=== PATIENT | male | born 1970 | race Caucasian/White ===

== ENCOUNTER 2024-10-16 09:33 | Day surgery (SDC) | payer OTHER, SELFPAY ==
[2024-10-16] VITALS (9 sets, daily range): BP systolic 111–148; BP diastolic 75–97
--- NOTE | 2024-10-16 14:44 | ITS.CL.PN ---
Mobile Designer - Procedure Note
Procedure
Procedure Note:
CARDIAC CATHETERIZATION REPORT
Date of Procedure: 10/16/2024
Referring: Dr. Jaswinder Schwartz MD
Indication: preop evaluation prior to surgical aortic valve replacement
PROCEDURE: coronary angiography
ACCESS: 6F right radial artery (closure: radial band)
CATHETERS
1. 6F JR4
2. 6F JL4
MODERATE SEDATION: 25 minutes of moderate sedation was utilized. An independent medical coding specialist was present to assist with and help manage the patient's level of consciousness and physiologic status.
CORONARY ANGIOGRAPHY
Dominance: Right
LM: Short, normal
LAD: Large vessel giving rise to a small D1 and moderate caliber D2 before wrapping around the apex. There is no coronary artery disease.
LCx: Large caliber vessel giving rise to several small early OM branches, a small OM1, moderate caliber OM 2, and large LPL branch. There is no coronary artery disease.
RCA: Moderate caliber vessel giving rise to a small RPDA and small RPL branch. There are trivial luminal irregularities only.
RADIATION: dose 317 mGy; DAP 22 Gy*cm2; fluoroscopy time 4.4 min
CONCLUSIONS: normal coronary arteries in a right dominant system
RECOMMENDATION: proceed with workup for surgical AVR
Copy to: Ruel Tucker MD (cupola operator insulation); Jaswinder Schwartz MD (cardiac surgeon); Maverick King MD (PCP)
Signed: Tobias Manzano MD, PhD
== END 2024-10-16 14:20 | disposition home or self-care (01) ==
LOC: CATH 09:33
PROVIDERS: ATTENDING PHYSICIAN Internal Medicine Cardiovascular Disease; FAMILY PHYSICIAN Internal Medicine; OTHER PHYSICIAN Internal Medicine Cardiovascular Disease
DX: Z01.810 Encounter for preprocedural cardiovascular examination (principal); I35.0 Nonrheumatic aortic (valve) stenosis; Q23.81 Bicuspid aortic valve; Z82.49 Family history of ischemic heart disease and other diseases of the circulatory system; Z79.82 Long term (current) use of aspirin
CPT/HCPCS: 99152; 99153; C1769; C1894; 93454; Q9967

== ENCOUNTER → 2024-10-19 13:46 | Outpatient (REF) | payer OTHER, SELFPAY | LOC: RAD 13:46 | PROVIDERS: ATTENDING PHYSICIAN Thoracic Surgery (Cardiothoracic Vascular Surgery); FAMILY PHYSICIAN Internal Medicine; OTHER PHYSICIAN Internal Medicine Cardiovascular Disease | DX: I35.0 Nonrheumatic aortic (valve) stenosis (principal); Z01.810 Encounter for preprocedural cardiovascular examination | CPT/HCPCS: 75573; Q9967 ==

== ENCOUNTER 2024-10-23 05:05 | Inpatient (IN) | payer OTHER, SELFPAY ==
[2024-10-16 09:21] VITALS: BMI 30.6
[2024-10-16 09:21] LABS: Hematocrit 43.5 % (39.0-52.0); Hemoglobin 14.1 g/dL (13.0-18.0); Mean Corp Hgb Conc. 32.4 g/dL (33.0-37.0); Mean Corpuscular Volume 83.5 fL (80.0-94.0); Nucleated Red Blood Cells % 0 % (-); Platelet Count 214 10^3/uL (130-400); Red Cell Dist. Width 13.1 % (11.5-14.5); Urine Character Clear (Clear)
[2024-10-16 09:29] LABS: INR 0.97; PT 13.2 Sec (11.4-14.6)
--- NOTE | 2024-10-16 09:36 | CM ---
Chart reviewed. Met with the patient and his in PAT. Reviewed preoperative and postoperative instructions and restrictions, along with showering guidelines. Gave patient 2 soaps and Cardiac Surgery Book. Patient is agreeable to a home
visit by CT Transitional RN. Patient is independent of ADLS, lives with his in a 2 STH, 1 LAURO, 0 DME. Plan is for the patient to return home with CT Transitional RN. CM to follow
[2024-10-16 09:44] LABS: ALT (SGPT) 19 U/L (0-50); AST (SGOT) 20 U/L (17-59); Albumin 4.5 g/dl (3.5-5.0); Alkaline Phosphatase 75 U/L (38-126); Blood Urea Nitrogen 21 mg/dl (9-20); Calcium 9.5 mg/dl (8.4-10.2); Carbon Dioxide 26 mmol/L (22-30); Chloride 107 mmol/L (98-107); Estimated Creatinine Clearance 111 ml/min; Glucose 100 mg/dl (70-99); Potassium 4.3 mmol/L (3.5-5.1); Sodium 139 mmol/L (135-145); Total Protein 7.0 g/dl (6.3-8.2); eGFR > 60.00
[2024-10-16 11:46] LABS: Glycohemoglobin (HgbA1c) 5.2 % (4.0-5.6)
[2024-10-23] VITALS (16 sets, daily range): BP systolic 93–118; BP diastolic 56–76; BMI 28.0
[2024-10-23] MEDS: BACTROBAN 2% OINTMENT 1 APPLIC NASAL ×2 (05:34→19:41)
[2024-10-23] MEDS: LOPRESSOR 25 MG PO (05:34)
[2024-10-23] MEDS: MAGNESIUM OXIDE 500 MG PO (05:35)
[2024-10-23] MEDS: PROTONIX 40 MG PO (05:35)
--- NOTE | 2024-10-23 06:00 | PTCARENOTE ---
Patient arrived to room 2260 with security messenger. Patient A+A+Ox3. No neurological deficits. Steady gait. No c/o pain or discomfort. Patient confirmed taking Chlorhexidine shower last night and this morning. Patient confirmed NPO status
after midnight. Admission questions completed. Medication reconciliation completed. Patient clipped and prepped per protocol. CHG wipes. Required pre-op medications administered. Use of Heart pillow explained with repeat demonstration by
patient. I.S. 3500 ml. Patient's at bedside. Dr. Schwartz to speak with patient. call out operator to CVOR.
--- NOTE | 2024-10-23 06:08 | W.CVOR.SURPR ---
CVOR Surgeon Immed Pre Op
-
I have examined this patient prior to performance of the scheduled procedure.
The patient's condition is unchanged from the time of the dictated/written History and
Physical and the patient is able to undergo the scheduled procedure.
SAVR (biological - shared decision based on his SAVR CT measurements)
[2024-10-23 07:23] LABS: Urine Character Clear (Clear)
[2024-10-23 07:35] LABS: ACT+ - POC 115 Seconds (82-134)
[2024-10-23 08:23] LABS: Urine Red Blood Cell 0-2 /HPF (0-2); Urine White Cell 0-2 /HPF (0-5)
[2024-10-23 09:34] LABS: B.E. - POC 2.1 mmol/L; Glucose - POC 164 mg/dl (70-99); HCO3 - POC 27 mmol/L (21-28); Hematocrit - POC 34 % PCV (42-52); Hemodilution- POC Yes; Hemoglobin Calculated - POC 11.7; Ionized Calcium - POC 1.08 mmol/L (1.15-1.33); Lactate - POC 0.49 mmol/L (0.36-0.75); O2 Saturation %Calculated-POC 99.9 % (94-98); PCO2 - POC 40 mmHg (35-48); PO2 - POC 303 mmHg (83-108); Potassium - POC 5.0 mmol/L (3.5-5.1); Sodium - POC 142 mmol/L (136-145); Specimen Type - POC Arterial; pH - POC 7.43 (7.35-7.45)
[2024-10-23 09:34] LABS: ACT+ - POC 651 Seconds (82-134)
[2024-10-23 09:38] LABS: ACT+ - POC 134 Seconds (82-134)
--- NOTE | 2024-10-23 10:14 | W.PN.CT.SURG ---
CT Surgery Operative Note
-
CARDIAC SURGERY OPERATIVE REPORT
Preoperative Diagnosis: Aortic valve stenosis with bicuspid valve morphology, and presyncope
Postoperative Diagnosis: Same
Procedure(s) Performed:
1. Standard sternotomy the aortic and right atrial cannulation
2. Surgical aortic valve replacement [29 mm bioprosthesis]
3. 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
4. Rigid sternal fixation with 3 plates
5. Placement temporary ventricular pacing wire
6. Transesophageal echocardiography
Date of Surgery: 10/23/2024
Comorbidities:
1. Bicuspid aortic valve, type I Brionna classification
2. Severe aortic valve stenosis, symptomatic
3. Presyncope
Attending Surgeon: Jaswinder Schwartz MD, MS
Assistants: Aimee Leary PA-C (present and necessary to technical services assistant, retraction, suction, exposure, suture management, and wound closure under my direction)
Anesthesiology: Lex Mendoza MD and Lolly Penny CRNA, Colleen Mary Hunara, CRNA
Scrub and Circulating RNs: Arminda Lincoln RN, Loan Maynard RN
Central Station Operator: Aaron Singh CCP
Anesthesia: GETA
EBL: per perfusion records
Products: None
CPB Time: 66 minutes
Aortic Cross Clamp Time: 55 minutes
Indication(s) for Procedures: This is a 54-year-old male who has been noticing increasing symptoms while running. He is very active at baseline and does high speed running. Lately will try to push himself to the same level he developed presyncopal
symptoms. His transthoracic echocardiogram demonstrated severe to critical aortic valve stenosis with a mean gradient of 64 mmHg. He has known bicuspid valve morphology with [id number] fusion. Given his symptoms and his young age, he was
offered surgical aortic valve replacement with either mechanical biological valve. Given his line of work, shared decision making was to pursue a biological valve with the knowledge that he may need a repeat SAVR versus a TAVR and SAVR down the
line. His TAVR CT scan demonstrated amenable anatomy of the large root which should be good for a future transcatheter invention.
Aortic Valve Description: Bicuspid aortic valve morphology with left and right fusion, type I Brionna classification. Heavily calcified into the body and annulus particular towards aorto mitral curtain. The left right coronary ostia within normal
anatomic positions.
Findings: Ventricular ejection fraction preoperatively was 60% with no significant regional wall motion abnormalities. Following surgery his EF remained the same at 60% with no new regional wall motion abnormalities. His aortic valve was bicuspid,
type I Brionna classification of the left right fusion. There was heavy calcification that infiltrated down towards annulus particularly towards the aorto mitral curtain. This was debrided in order to provide a smooth surface for implanting the
new valve. A small rent was made into the aorto mitral curtain at the aortic valve annulus and this was repaired primarily with 4-0 Prolene and also a single pledgeted suture. The valve was replaced using a total of fifteen 2-0 Ethibond sutures
with 1 being pledgeted at that area. A 29 mm valve was then parachuted into place and core knots were used to secure the valve. After, of cardiopulmonary bypass there is no paravalvular leak, the mean gradient across the new valve was 5 mmHg. Did
not require any blood products. He required a short period of VVI pacing and then regained a sinus rhythm. No inotropic support was required. Sternum was then rigidly fixated with 3 gold plates.
Specimen(s): Aortic valve leaflets.
Prosthesis:
1. 29 mm Rollins Inspira's Resilia aortic valve, serial #[id number]
2. 3 gold plates with a total of 14 x 18 mm screws
Description of Procedure: The patient was taken to the operating room. Their identity and procedure to be performed were verified and they were positioned supine on the operating table. Induction via general anesthesia with endotracheal intubation
was performed and central venous access and arterial monitoring were inserted. A preoperative transesophageal echocardiogram was performed to assess cardiac function and valvular function. The patient was then prepped and draped from chin to feet in
a sterile fashion. A preoperative time-out was performed with all members of the team present. A midline chest incision was performed along with median sternotomy. The innominate vein was isolated. Full heparinization was given (a total of 55,000
units). We created a pericardial well. The aortic cannulation site was chosen where it was soft, pliable, and free of calcium. Cannulation was performed with an arterial cannula in the ascending aorta and a triple-stage venous cannula through the
right atrial appendage. The arterial cannula line had an appropriate bounce and correlating pressures with test dosing. Next, a root vent/antegrade cannula was inserted into the ascending aorta. The ACT was confirmed to be over 400 and retrograde
autologous priming was performed before commencing cardiopulmonary bypass. The pulmonary artery was away from the aorta to facilitate a clamp site and aortotomy. A left ventricular vent was placed at the right superior pulmonary vein and
secured. The aortic cross-clamp was placed after decreasing the flow on the bypass and mean arterial pressure. A total of 1.2L initial dose of antegrade Del-Nido cardioplegia solution was given and planned for re-dosing every 75 minutes as
necessary. There was rapid electro-mechanical arrest of the heart at 400 cc of cardioplegia. The left ventricle was observed for distention on echocardiogram and manual palpation. Cold slush was placed into a sponge and topically on the RV while we
systemically cooled to 34 degrees centigrade.
Carbon dioxide was used to flood the field. We manually identified the location of the right coronary take off. An aortotomy was made approximately 2cm above the sinotubular junction. The location of both left and right coronary vessels were
visualized in the root.The leaflets were excised and sent for pathological assessment. The annulus was debrided of any calcium being mindful of the annulus and membranous septum. A single 4-0 prolene was used to oversew a torn area at the
aortomitral curtain. The root and left ventricular outflow tract were thoroughly irrigated to remove any debris. A total of 14 Non-pledgeted and 1 pledgeted 2-0 ethibond inverted annular sutures were placed [id number] circumferentially. These
were brought through the sewing cuff of the prosthetic valve which as then parachuted into place. The left and right coronary ostia were visualized and were unobstructed by the valve. A Cor-Knot device was used to secure the annular sutures. The
valve was inspected and was well seated. The aortotomy was approximated with 4-0 prolene in two layers. De-airing maneuvers were performed and temporary bipolar ventricular pacing wires were placed on the base of the right ventricle. The patient was
placed in a Trendelenburg position and flows on bypass were lowered. The aortic cross clamp was removed and flows were slowly brought back up. The aortotomy appeared hemostatic. Transesophageal echocardiography revealed no paravalvular leak and
appropriate prosthetic function. Once de-airing was satisfactory, the left ventricular and root vents were removed. After verifying acceptable parameters, we initiated weaning from cardiopulmonary bypass. Once we were off cardiopulmonary bypass, the
venous cannula was clamped and removed. A test dose of protamine was administered and the patient was monitored for any adverse reaction before resuming protamine. Once half of the protamine dose was delivered, pump suckers were turned off and the
systolic blood pressure was lowered for aortic decannulation. The aortic cannula was removed and pursestrings were tied down. All cannulation sites were oversewn with a 4-0 prolene. The aortotomy suture line was inspected and hemostasis was
confirmed. Mediastinal hemostasis was obtained. Two 24Fr Javi drains were placed within the pericardium and a 19Fr javi into the right hemithorax. The sternum was approximated with 4#7 single and 3 #8 double stainless steel wires. 3 gold plates
were used to fixate the sternum. Fascia was approximated with #1 vicryl suture. The subcutaneous, dermis and epidermis were closed in layers in a running fashion. The skin wound was cleansed and dressed.
All instrument, sponge, and needle counts were confirmed to be correct x 2 at the end of the operation. The patient was transferred to the cardiac intensive care unit in critical but stable condition.
I, Dr. Jaswinder Schwartz, was present, scrubbed for, and performed all critical elements of this procedure.
Jaswinder Schwartz MD, MS
Cardiothoracic Surgeon
[facility]
This operative dictation was created using the [employer] dictation system. Please excuse any grammatical, typographical, or 'sound alike' errors
--- NOTE | 2024-10-23 10:28 | CON.INTV ---
Consultation
Consultation Request
Date/Time Consultation Requested: 10/23/2024 - 958
Date/Time Consultation Performed: 10/23/2024 - 1021
Requesting Provider: IRIS Aaron
Performing Provider: Dr. Mooney
Reason for Consultation: s/p AVR
Medical History
-
Chief Complaint: Elective SAVR
History of Present Illness:
54-year-old male non-smoker with a past medical history of nonrheumatic aortic valve stenosis and bicuspid aortic valve who presents for elective aortic valve replacement. Patient is a runner, and has been noticing increasing symptoms while
running. He has an excellent baseline functional status. He has been having episodes of presyncope + lightheadedness while walking/running. These symptoms are overall new for him. Transthoracic echo on 09/30/2024 showed a preserved LVEF at 60-65%,
with normal RV function, with severe to critical aortic stenosis with a peak gradient of 96 mmHg, and mean gradient of 65 mmHg. TATIANA 0.7 cm�, with a bicuspid appearing valve. Patient underwent left heart catheterization on 10/16/2024 showing normal
coronary arteries. Surgical intervention was discussed at patient's last office visit with Dr. Schwartz on 10/09/2024, and the patient agreed to this procedure. Today, patient underwent surgical aortic valve replacement with a 29 mm bioprosthesis, and
primary repair at the aorto mitral curtain at the aortic annulus due to calcium infiltration. There were no complications, and the patient was transferred to the CVICU postoperatively for further care. [facility] services consulted for additional
management/recommendations.
When I saw the patient he was resting in bed, intubated on SIMV at 14/650/40%/5, with PIP 19 cmH2O, VTe 563 cc and breathing at 14 breaths/min. Heart rate 57, BP via A-line 102/61, PAP 22/10, BP via NIBP: 100/66, SpO2 94%, with CO/CI: 5.05/2.1,
respectively. Currently on Precedex at 0.2 mcg/kg/hr, Levophed at 2 mcg/min and insulin drip at 4 units/hr. Right pleural chest tube + mediastinal chest tubes x [address]
PMHx: Aortic valve stenosis, bicuspid aortic valve
PSHx: Left shoulder release, vasectomy
Past Medical History
Past Medical History: Other (Above as per HPI)
Past Surgical History: Other (Above as per HPI)
Social History
Tobacco: Former Smoker (Former light tobacco smoker in his 20s)
Alcohol: None
Drug: None
Personal:
Employment: Employed ([employer] for [employer])
Family History
Family History: CAD (Maternal grandfather + maternal uncle) and Other (Mother: Dementia + stroke)
Allergies / Home Medications
Allergies
Allergy/AdvReac Type Severity Reaction Status Date / Time
No Known Allergies Allergy Verified 10/14/24 11:22
Home Medications
�Medication �Instructions �Recorded �Confirmed �Last Taken �Type
aspirin 325 mg tablet 325 mg PO PRN PRN pain 10/14/24 10/23/24 10/16/24 08:00 History
325 mg
Review of Systems
-
Unable to Obtain full review of systems at this time due to: Patient Intubation
Vitals / Labs / Diagnostic Testing
Vital Signs
Temp Pulse Resp BP Pulse Ox
96.3 F L 55 14 118/76 99
10/23/24 11:00 10/23/24 11:00 10/23/24 11:00 10/23/24 05:34 10/23/24 11:00
Lab Data
10/23/24 10:34
Laboratory Results
10/23/24
10:34
PT 17.4 H
INR 1.40
APTT 30.0
pH 7.42
pCO2 37
pO2 161 H
HCO3 24.0
O2 Delivery Level
Diagnostic Testing:
Physical Exam
-
HEENT: Normocephalic, Anicteric and Other (ETT in place)
Cardiovascular: S1/S2 and Peripheral Edema (negative)
Respiratory: Wheeze (negative), Rales (negative), Rhonchi (negative), Non-Labored Respirations, Other (Mechanical breath sounds heard bilaterally) and Other (Right pleural chest tube x 1 + mediastinal chest tubes x 2)
GI: Soft, Non Distended, Non Tender and Normal Bowel Sounds
Neurology: Tremors (negative) and Other (Sedated although awakens to tactile stimulation)
Skin: Warm and Dry
General: Respiratory Distress (negative), Comfortable, Fever (negative) and Chills (negative)
Assessment
-
Assessment: 54-year-old male non-smoker with a past medical history of nonrheumatic aortic valve stenosis and bicuspid aortic valve who presents for elective aortic valve replacement. Patient is a runner, and has been noticing increasing symptoms
while running. He has an excellent baseline functional status. He has been having episodes of presyncope + lightheadedness while walking/running. These symptoms are overall new for him. Transthoracic echo on 09/30/2024 showed a preserved LVEF at
60-65%, with normal RV function, with severe to critical aortic stenosis with a peak gradient of 96 mmHg, and mean gradient of 65 mmHg. TATIANA 0.7 cm�, with a bicuspid appearing valve. Patient underwent left heart catheterization on 10/16/2024 showing
normal coronary arteries. Surgical intervention was discussed at patient's last office visit with Dr. Schwartz on 10/09/2024, and the patient agreed to this procedure. On 10/23/2024, patient underwent surgical aortic valve replacement with a 29 mm
bioprosthesis, and primary repair at the aorto mitral curtain at the aortic annulus due to calcium infiltration. There were no complications, and the patient was transferred to the CVICU postoperatively for further care. [facility] services
consulted for additional management/recommendations.
Chronic conditions UNIVERSITY RELATIONS DIRECTOR: Aortic valve stenosis, bicuspid aortic valve
Impression:
#Symptomatic severe aortic valve stenosis with bicuspid valve morphology s/p surgical aortic valve replacement with 29 mm bioprosthesis + primary repair at the aorto mitral curtain at the aortic annulus due to calcium infiltration (POD #0)
#Hyperglycemia (mild) � HbA1c 5.2 on 10/16/2024
#Acute anemia due to above
#Thrombocytopenia due to above
Plan:
Ventilator settings reviewed
FiO2 will be weaned to maintain SpO2 >90-94%
Minute ventilation will be adjusted
Arterial blood gases will be monitored
Spontaneous breathing trial will be attempted with hopeful extubation after anesthesia/sedation wear off
prn nebulized bronchodilators - not currently bronchospastic
Pulmonary artery catheter parameters will be followed
Pressors/antihypertensive/inotropes/diuretics will be provided as needed
Maintain MAP>65
Replete electrolytes with K>4, Mg>2
Monitor chest tube output (right pleural chest tube x 1 and mediastinal chest tubes x 2)
Monitor hemoglobin
Monitor platelet count and coags
Transfuse blood products as needed to maintain Hb>7g/dL, plt>50k (given post-operative status)
CT surgery managing chest tubes
Monitor blood sugar to maintain euglycemia with goal BG 110-140
Insulin drip per protocol
Aspiration precautions
VAP prevention protocol
DVT prophylaxis
Early nutrition
Early mobilization
Critical care statement: A total of 41 minutes of critical care time was provided for this patient today. This includes management of ventilator, spontaneous breathing trial, arterial blood gases, pressors, of unstable vital signs, evaluation of the
patient at bedside, reviewing the patient's pertinent medical records including radiographs, microbiology, laboratory evaluations, and discussion with primary team and critical care nursing.
[2024-10-23 10:35] LABS: Glucose - Point of Care 131 mg/dl (70-99)
[2024-10-23] MEDS: NEURONTIN PO (10:47)
[2024-10-23] MEDS: ANCEF 10 IV ×2 (10:47)
[2024-10-23] MEDS: NOVOLOG FLEXPEN SC ×3 (10:48→13:44)
[2024-10-23 10:49] LABS: B.E. -0.2 mmol/L; HCO3 24.0 mmol/L (21-28); O2 Saturation % 99.4 % (94-98); PCO2 37 mmHg (35-48); PO2 161 mmHg (83-108); Potassium 4.2 mMOL/L (3.5-5.1); Sodium 135 mMOL/L (136-145)
[2024-10-23] MEDS: VERSED 0.5 MG IV (10:49)
[2024-10-23] MEDS: NSS 500 IV (10:51)
[2024-10-23 10:55] LABS: Hematocrit 36.7 % (39.0-52.0); Hemoglobin 12.4 g/dL (13.0-18.0); Platelet Count 139 10^3/uL (130-400)
[2024-10-23 10:58] LABS: INR 1.40; PT 17.4 Sec (11.4-14.6)
[2024-10-23 10:59] LABS: APTT 30.0 Sec (23.4-35.0)
[2024-10-23 11:06] LABS: Glucose - Point of Care 123 mg/dl (70-99)
[2024-10-23 11:14] LABS: Blood Urea Nitrogen 18 mg/dl (9-20); Estimated Creatinine Clearance 116 ml/min; Glucose 131 mg/dl (70-99); Magnesium 2.8 mg/dl (1.6-2.3)
[2024-10-23] MEDS: DILAUDID 0.5 MG IV (11:14)
--- NOTE | 2024-10-23 11:15 | PTCARENOTE ---
pt received from CVOR @~1030, sedated on Precedex gtt, RASS -3/-4. follows commands, VAUGHN. core temp 96.2F, bear hugger applied as ordered. SB on the monitor, HR 50s. V-wire in place, VVI 40/20. SBP 100-110s. MAP>65. Levophed gtt titrated as ordered.
PAP 20s/10s, CVP~6. CI>2. palpable pulses. pt mechanically ventilated, ETT #8.0, 24cm@lip. SIMV 14, TTV 550, PEEP5, FIO2 40%. POX 96-100%. lungs clear anteriorly, suctioned for scant clear secretions. CTx3, no air leak or crepitus noted. pt abdomen
s/n, hypoactive BS. Ma in place, clear yellow urine. sternal incision SENIOR RUBY DEVELOPER, approximated. chest tube site c/d/i. RIJ Cordis/swan maintained. L radial Martita flushed, zeroed, and calibrated. PIV. insulin gtt running as ordered. lab work drawn, EKG
performed, CXR completed. see worklist for VS, I&O, and assessment.
--- NOTE | 2024-10-23 11:22 | W.PN.CD ---
Addendum entered and electronically signed by Bruce Ambrose MD 10/23/24 17:27:
I saw and examined the patient independently.
The WOOD FINISHER's note was reviewed and I agree with the note with changes/additions noted below.
Comment:
54 yo male with PMH of severe admitted following bio-AVR. He has been extubated and is awake. He offers no cardiac complaints. Exam with RRR, no murmurs, no edema. Tele: SR 60s. MÓNICA: EF 60%.
Monitor tele.
Wean drips.
Original Note:
Today's Communication / Plan
-
Follow telemetry
Postoperative management per CT surgery
Impression / Plan
-
I/P: 54M with symptomatic severe aortic stenosis presents for AVR
Primary justice court judge: Dr. Ruel Tucker
Severe symptomatic aortic valve stenosis with bicuspid morphology s/p surgical aortic valve replacement (29 mm Rollins Inspira Resilia) by Dr. Schwartz 01/23/2025
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
- Post MG 5 mmHg
- Post LVEF unchanged at 60% with no new regional wall motion abnormalities
- Required a short period of VVI pacing and has regained sinus rhythm, no inotropic support required
- EKG sinus bradycardia with inferior T wave abnormality, iRBBB no longer present
SUBJECTIVE:
Intubated and sedated. Operative report reviewed.
Physical Exam
Vital Signs/Labs
Vital Signs
Temp Pulse Resp BP Pulse Ox
96.3 F L 55 14 118/76 99
10/23/24 11:00 10/23/24 11:00 10/23/24 11:00 10/23/24 05:34 10/23/24 11:00
10/22/24 10/23/24 10/24/24
06:59 06:59 06:59
Actual Weight 107 kg
10/23/24 10:34
PT 17.4 Sec (11.4-14.6) H 10/23/24 10:34
INR 1.40 10/23/24 10:34
APTT 30.0 Sec (23.4-35.0) 10/23/24 10:34
Magnesium 2.8 mg/dl (1.6-2.3) H 10/23/24 10:34
Physical Exam
Constitutional: No acute distress and Comfortable
EENT: Anicteric and Moist mucous membranes
Cardiovascular: Rhythm & rate is regular, Pedal edema is absent, S1S2 is normal and Murmur/rub/gallop absent
Respiratory: Lungs clear to auscul. and Other (Intubated and sedated)
GI: Soft, Distention absent and Flat
Neuro/Psych: Other (sedated)
Other: Skin (warm and dry without edema)
Data Reviewed
-
Date of Service: October 23, 2024
EKG: Report Reviewed by me
Labs: Labs Reviewed by me
Old Records: Reviewed
--- NOTE | 2024-10-23 11:28 | W.PN.UPDATE ---
Update Note
Progress Note Update
54 year old male was electively admitted 10/23/24 for AVR due to bicuspid aortic valve with aortic stenosis.
IV fluids: 1500
U.O.:� 600
Blood:� none
Wires:� bipolar V-wire
Drips: Levophed @1, Precedex @ 0.5, Insulin @ 1
�
NEURO: sedated, pupils +2mm B/L
RESP: #8OT @24cm> 650/40%/12/08. Lungs clear B/L. 2 mediastinal (20cc on arrival) and L pleural (0cc on arrival) chest tubes to -20cm suction. Sanguineous drainage
CV: RRR +S1, S2, no S3, no�rub, no murmur. Dermabond to median sternotomy. RIJ w/[place] locked @ 49cm. PA 25/11; CVP 7; C.O 5.08/CI 2.12
ABD: round, soft, no BS
EXT: no edema, +2/4 DP pulses B/L, no femoral bruit, left radial A-line intact
: Ma with clear yellow urine
�
A/P: POD #0 s/p aortic valve replacement [#29 mm bioprosthesis]
MÓNICA: EF�60-65%, AV mean 5mmHg
- wean and extubate
- will need instruction regarding antibiotic prophylaxis for dental and invasive procedures
- ASA for antiplatlet s/p tissue AVR
�
# acute surgical blood loss anemia-expected
- trend CBC
�
�
�
[2024-10-23] MEDS: LR 250 ML IV ×3 (11:46→14:59)
[2024-10-23 12:04] LABS: Glucose - Point of Care 164 mg/dl (70-99)
[2024-10-23] MEDS: TYLENOL PO (12:22)
[2024-10-23] MEDS: OFIRMEV 100 IV (12:28)
--- NOTE | 2024-10-23 12:46 | PTCARENOTE ---
updated at bedside. LR bolus given, pt nods head yes to pain, ordered Ofirmev given. pt washed w/ CHG wipes, gown changed, face washed. oral hygiene performed. attempted CPAP trial, multiple apneic episodes, placed back on SIMV.
[2024-10-23 13:01] LABS: Glucose - Point of Care 132 mg/dl (70-99)
[2024-10-23 14:00] LABS: Glucose - Point of Care 114 mg/dl (70-99)
[2024-10-23 14:27] LABS: Hematocrit 37.2 % (39.0-52.0); Hemoglobin 12.7 g/dL (13.0-18.0); Platelet Count 162 10^3/uL (130-400)
[2024-10-23 14:31] LABS: B.E. - POC -1.2 mmol/L; Blood Urea Nitrogen - POC 16 mg/dl (3-120); Chloride - POC 111 mmol/L (96-111); Creatinine - POC 1.09 mg/dl (0.3-1.0); Glucose - POC 109 mg/dl (70-99); HCO3 - POC 23 mmol/L (21-28); Hematocrit - POC 34 % PCV (42-52); Hemodilution- POC No; Hemoglobin Calculated - POC 11.7; Ionized Calcium - POC 1.12 mmol/L (1.15-1.33); Lactate - POC 1.78 mmol/L (0.36-0.75); O2 Saturation %Calculated-POC 99.7 % (94-98); PCO2 - POC 34 mmHg (35-48); PO2 - POC 191 mmHg (83-108); Potassium - POC 3.0 mmol/L (3.5-5.1); Sodium - POC 142 mmol/L (136-145); Specimen Type - POC Arterial; pH - POC 7.43 (7.35-7.45)
[2024-10-23] MEDS: KCL 50 IV ×2 (14:36→15:34)
[2024-10-23] MEDS: TORADOL 30 MG IV (14:54)
[2024-10-23 15:05] LABS: Glucose - Point of Care 110 mg/dl (70-99)
--- NOTE | 2024-10-23 15:11 | PTCARENOTE ---
pt placed on CPAP @1330, alert and awake, a couple apneic periods. SLOT MACHINE FLOOR PERSON aware. H&H drawn, EPOC performed at bedside by SLOT MACHINE FLOOR PERSON. pt extubated @1433 to 6LNC, suctioned for thick oral secretions. oriented x4. Ashley at bedside. pt c/o sternal and back
pain, ordered Toradol given.
[2024-10-23] MEDS: NEURONTIN 100 MG PO ×2 (15:54→21:12)
[2024-10-23] MEDS: LOW STRENGTH ASPIRIN 81 MG PO (15:54)
[2024-10-23] MEDS: PACERONE PO (16:04)
--- NOTE | 2024-10-23 16:31 | CM ---
pt in OR today, cm following
[2024-10-23 17:06] LABS: Glucose - Point of Care 116 mg/dl (70-99)
[2024-10-23] MEDS: ANCEF 5 IV (17:06)
[2024-10-23] MEDS: DILAUDID 0.25 MG IV (17:07)
[2024-10-23] MEDS: CALCIUM GLUCONATE 100 IV (17:36)
--- NOTE | 2024-10-23 18:31 | PTCARENOTE ---
pt c/o pain, received PRN Dilaudid 0.25mg IVP w/ decrease in pain.
[2024-10-23 19:01] LABS: Glucose - Point of Care 104 mg/dl (70-99)
[2024-10-23] MEDS: SENOKOT-S 1 TABLET PO (19:39)
[2024-10-23] MEDS: ROXICODONE 5 MG PO (19:40)
--- NOTE | 2024-10-23 20:00 | PTCARENOTE ---
Assumed care of the patient at 1900. Patient in bed, AOx4, VAUGHN, appropriate. C/o 10/08 pain, see MAR. SR on CM, rates 60-70's, v wire to backup pacer box, see work list, no edema, pulses palpable, heart tones audible. Lungs clear, 2LNC, CTx3 with
sanguineous drainage in chamber to -20 wall suction, no air leak, tidaling, or crepitus noted. Hypoactive BS, abdomen SNT, tolerating sips and chips and PO medication without nausea. Ma catheter in place draining clear yellow urine. All surgical
sites stable and intact. RIJ Cordis with Tacos at 49, L radial erin, PIVx1; all applicable lines leveled, calibrated, and flushed. Cardene started per CVPA d/t SBP 120-130 - keep 90-110 until 2200, titrating per protocol. Patient on insulin gtt at
this time. POC discussed, patient in agreement, education provided, assessment of needs ongoing.
--- NOTE | 2024-10-23 20:30 | PTCARENOTE ---
Assumed care of the patient at 1900. Patient in bed, AOx4, VAUGHN, appropriate. C/o 10/08 pain, see MAR. SR on CM, rates 60-70's, v wire to backup pacer box, see work list, no edema, pulses palpable, heart tones audible. Lungs clear, 2LNC, CTx3 with
sanguineous drainage in chamber to -20 wall suction, no air leak, tidaling, or crepitus noted. Hypoactive BS, abdomen SNT, tolerating sips and chips and PO medication without nausea. Ma catheter in place draining clear yellow urine. RIJ Cordis
with Tacos at 49, L radial erin, PIVx1; all applicable lines leveled, calibrated, and flushed. Cardene started per CVPA d/t SBP 120-130 - keep 90-110 until 2200, titrating per protocol. Patient on insulin gtt at this time. POC discussed, patient in
agreement, education provided, assessment of needs ongoing.
[2024-10-23] MEDS: TORADOL 15 MG IV (20:42)
[2024-10-23 21:07] LABS: Glucose - Point of Care 154 mg/dl (70-99)
[2024-10-23] MEDS: TYLENOL 1000 MG PO (21:12)
[2024-10-23 23:08] LABS: Glucose - Point of Care 117 mg/dl (70-99)
[2024-10-24] VITALS (19 sets, daily range): BP systolic 95–117; BP diastolic 60–74; BMI 28.5
--- NOTE | 2024-10-24 | PTCARENOTE ---
VSS, pain management with multiple modalities. Cardene titrated to off, CO/CI in flow sheet. Pt at bedside. Assessment of needs ongoing.
[2024-10-24] MEDS: DILAUDID 0.5 MG IV ×2 (00:17→07:07)
[2024-10-24 01:06] LABS: Glucose - Point of Care 109 mg/dl (70-99)
[2024-10-24] MEDS: ROXICODONE 5 MG PO ×4 (02:23→18:56)
[2024-10-24] MEDS: ANCEF 5 IV ×2 (02:24→10:08)
[2024-10-24 03:12] LABS: Glucose - Point of Care 122 mg/dl (70-99)
[2024-10-24] MEDS: TORADOL 15 MG IV ×2 (03:14→09:14)
[2024-10-24 03:38] LABS: Hematocrit 35.1 % (39.0-52.0); Hemoglobin 11.8 g/dL (13.0-18.0); Mean Corp Hgb Conc. 33.6 g/dL (33.0-37.0); Mean Corpuscular Volume 82.4 fL (80.0-94.0); Platelet Count 141 10^3/uL (130-400); Red Cell Dist. Width 13.1 % (11.5-14.5)
[2024-10-24 03:52] LABS: Blood Urea Nitrogen 24 mg/dl (9-20); Calcium 8.5 mg/dl (8.4-10.2); Carbon Dioxide 24 mmol/L (22-30); Chloride 109 mmol/L (98-107); Estimated Creatinine Clearance > 125 ml/min; Glucose 115 mg/dl (70-99); Magnesium 2.2 mg/dl (1.6-2.3); Potassium 4.0 mmol/L (3.5-5.1); Sodium 139 mmol/L (135-145); eGFR > 60.00
--- NOTE | 2024-10-24 04:20 | W.PN.CT ---
Today's Communication / Plan
-
-pod #1
-no issues overnight
-CI 2.46, CO 5.91. Drips: Insulin
-CT outputs: 2 meds 85/195, R pleur in 12/24 hrs
-delined
-d/c Ma
-d/c Insulin
-current meds (ASA, Lopressor, Amio, Protonix, iv iron)
Assessment / Plan
-
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
sternal fixation with [address] Schwartz on 10/23/25, pod #1
- Intraop MÓNICA: LVEF pre and postop was 60% with no significant regional wma. There was no paravalvular leak, the mean gradient across the new valve was 5 mmHg.
- L shoulder release 2018
- Vasectomy
- Nonsmoker
Discussed patient care with: Nursing and Care Team
Subjective
-
Date of Service: October 24, 2024
Objective Data
-
Lab Results
10/24/24 03:12
10/24/24 03:12
PT 17.4 Sec (11.4-14.6) H 10/23/24 10:34
INR 1.40 10/23/24 10:34
APTT 30.0 Sec (23.4-35.0) 10/23/24 10:34
Vital Signs
Vital Signs
Temp Pulse Resp BP Pulse Ox
99 F 65 22 104/66 97
10/24/24 04:00 10/24/24 04:10 10/24/24 04:10 10/24/24 04:00 10/24/24 04:10
CT Intake/Output/Weight
10/23/24 10/23/24 10/24/24
06:59 18:59 06:59
Intake Total 1551.0 / 2158.5 607.5 / 2158.5
Output Total 1068 / 1585 517 / 1585
Balance 483.0 / 573.5 90.5 / 573.5
SaO2: 97
Physical Exam
-
General: Awake and AOx3
Cardiovascular: Regular rate & rhythm, No Murmurs and No Rub
Respiratory: Decreased Breath Sounds
Sternum: Stable
Incision: Clean, Dry and Intact
Extremities: No Edema
Abdomen: soft, nontender, nondistended, + decreased bowel sounds
Data Reviewed
-
Lab Results: Results Reviewed
Medications: Active Meds Reviewed
Chest X-Ray: Report Reviewed and Image Reviewed
ECG: Report Reviewed and Image Reviewed
--- NOTE | 2024-10-24 04:20 | PTCARENOTE ---
No acute changes. Continued pain management.
[2024-10-24 05:07] LABS: Glucose - Point of Care 100 mg/dl (70-99)
[2024-10-24] MEDS: TYLENOL 1000 MG PO ×3 (06:07→21:37)
[2024-10-24] MEDS: ROXICODONE 2.5 MG PO (06:07)
[2024-10-24 07:00] LABS: Glucose - Point of Care 109 mg/dl (70-99)
--- NOTE | 2024-10-24 07:22 | W.PN.ANS.POP ---
Anesthesia Post Operative
- Anesthesia Post Op Note
Vital Signs Stable-See Nursing Note: Yes
Airway Patent: Yes
Adequate Pain Control: Yes
Change in Mental Status: No
Current Postoperative Nausea & Vomiting: No
Anesthesia Complications: No
General Anesthetic Recall: No
Unplanned Admission: No
Post Op Hydration Adequate: Yes
[2024-10-24] MEDS: NSS IV (07:33)
--- NOTE | 2024-10-24 08:00 | PTCARENOTE ---
Assumed care of patient. Walking rounds completed with previous RN. Pt assessed while he was up in the chair. Pt alert and oriented x4. Rates right sided chest pain/sternal pain 4/10. Denies nausea and shortness of breath. VAUGHN with equal strength
throughout. 1 assist to stand and get in to bed. NSR on tele with rates in the 70s. BP 95/64. +Rub. Bilateral radial and DP pulses palpable. No edema noted. Epicardial v-wire to temp pacer box. Thresholds completed, set to 40/5/6. No pacing after
thresholds completed. POX 96% on 2L, titrated to RA, POX 93%. Lungs diminished in the bases. IS encouraged-1000mL achieved. No cough noted. Right pleural chest tube to -20cm suction draining scant serosanguineous fluid. Mediastinal chest tubes x2
y-sited to 1 atrium to -20cm suction draining serosanguineous fluid WNL. Abdomen soft, nontender. Hypoactive BS. Tolerating clear liquid diet. Sternal incision approximated with skin glue, RENDERER. CT dressing CDI. Right IJ cordis intact infusing NSS
KVO. Left AC PIV intact infusing insulin gtt per Critical Care Glycemic Protocol. See MAR for medication administration. See worklist for complete nursing assessment. Plan of care reviewed and patient in agreement.
[2024-10-24] MEDS: MAGNESIUM OXIDE 500 MG PO ×2 (08:07→19:53)
[2024-10-24] MEDS: LOW STRENGTH ASPIRIN 81 MG PO (08:07)
[2024-10-24] MEDS: LIDOCAINE 4% PATCH 1 PATCH TOPICAL (08:07)
[2024-10-24] MEDS: PROTONIX 40 MG PO (08:07)
[2024-10-24] MEDS: FLEXERIL 5 MG PO ×2 (08:07→21:55)
[2024-10-24] MEDS: BACTROBAN 2% OINTMENT 1 APPLIC NASAL ×2 (08:08→19:54)
[2024-10-24] MEDS: PACERONE 200 MG PO ×3 (08:08→21:37)
[2024-10-24] MEDS: SENOKOT-S 1 TABLET PO ×2 (08:08→19:53)
[2024-10-24] MEDS: NEURONTIN 100 MG PO ×3 (08:08→21:37)
--- NOTE | 2024-10-24 08:11 | W.PN.INTV ---
Today's Communication / Plan
Recommendations
Up OOB as tolerated
Removal of mediastinal chest tubes x [address] surgery team
Goal BG 110�140
Maintain MAP >65
Cardiac rehab consult
Encourage incentive spirometer q1hr while awake
Patient will be transferred to CVICU�telemetry status. No additional recommendations at this time. [employer]/Pulmonary service will now sign off. Please reconsult if there are any additional questions/concerns, or if patient's respiratory
status deteriorates.
Assessment
-
Assessment: 54-year-old male non-smoker with a past medical history of nonrheumatic aortic valve stenosis and bicuspid aortic valve who presents for elective aortic valve replacement. Patient is a runner, and has been noticing increasing symptoms
while running. He has an excellent baseline functional status. He has been having episodes of presyncope + lightheadedness while walking/running. These symptoms are overall new for him. Transthoracic echo on 09/30/2024 showed a preserved LVEF at
60-65%, with normal RV function, with severe to critical aortic stenosis with a peak gradient of 96 mmHg, and mean gradient of 65 mmHg. TATIANA 0.7 cm�, with a bicuspid appearing valve. Patient underwent left heart catheterization on 10/16/2024 showing
normal coronary arteries. Surgical intervention was discussed at patient's last office visit with Dr. Schwartz on 10/09/2024, and the patient agreed to this procedure. On 10/23/2024, patient underwent surgical aortic valve replacement with a 29 mm
bioprosthesis, and primary repair at the aorto mitral curtain at the aortic annulus due to calcium infiltration. There were no complications, and the patient was transferred to the CVICU postoperatively for further care. [employer] services
consulted for additional management/recommendations.
Chronic conditions UPPER SHAPER: Aortic valve stenosis, bicuspid aortic valve
Impression:
#Symptomatic severe aortic valve stenosis with bicuspid valve morphology s/p surgical aortic valve replacement with 29 mm bioprosthesis + primary repair at the aorto mitral curtain at the aortic annulus due to calcium infiltration (POD #1)
#Hyperglycemia (mild) � HbA1c 5.2 on 10/16/2024 - glucose now controlled
#Acute anemia due to above
#Thrombocytopenia due to above
Plan:
Patient was successfully extubated to nasal cannula yesterday afternoon
He is currently on room air, breathing comfortably, saturating 92-93%
Maintain SpO2 >90-94%
prn nebulized bronchodilators - not currently bronchospastic
Encourage incentive spirometer
Pressors/antihypertensive/inotropes/diuretics will be provided as needed
Maintain MAP>65
Replete electrolytes with K>4, Mg>2
Monitor chest tube output (mediastinal chest tubes x 2; right pleural chest tube x 1 to be removed this AM)
Monitor hemoglobin
Monitor platelet count and coags
Transfuse blood products as needed to maintain Hb>7g/dL, plt>50k (given post-operative status)
CT surgery managing chest tubes
Monitor blood sugar to maintain euglycemia with goal BG 110-140
Insulin drip now off; recommend to use ISS to maintain BG at goal as above
Aspiration precautions
DVT prophylaxis
Early nutrition
Early mobilization
Patient will be transferred to CVICU�telemetry status. No additional recommendations at this time. [employer]/Pulmonary service will now sign off. Please reconsult if there are any additional questions/concerns, or if patient's respiratory
status deteriorates.
Total time spent today was 58 minutes for this encounter. Time includes reviewing laboratory test/imaging results, reviewing pertinent medical records, obtaining and reviewing medical history, performing an appropriate exam, ordering medications,
tests and procedures. Time also includes documentation of this encounter, coordinating patient care and communicating with other healthcare professionals. Total time does not include separately billed tests performed on this date of service.
Subjective Dataa
Subjective Data
Date of Service:
Date of Service: October 24, 2024
Chief Complaint: [employer] Follow Up
Subjective:
Patient was seen and evaluated today at bedside. Sitting in chair no acute distress. Heart rate 74, BP 108/68 and breathing comfortably on room air. Mediastinal chest tubes x [address] Right pleural chest tube to be removed soon. He feels
better than overnight as he has significant chest discomfort. Currently denies PACHECO, nausea, fevers or chills.
Review of Systems
General: Other (Negative unless mentioned above)
Objective Data
Data Reviewed
Vital Signs / I&O / Oxygen:
Vital Signs
Temp Pulse Resp BP Pulse Ox
98.3 F 73 18 108/68 99
10/24/24 07:00 10/24/24 07:00 10/24/24 07:00 10/24/24 07:00 10/24/24 07:00
Intake and Output
10/23/24 10/24/24 10/25/24
06:59 06:59 06:59
Intake Total 2262.4 / 2273.7 11.3 / 11.3
Output Total 1685 / 1720 35 / 35
Balance 577.4 / 553.7 -23.7 / -23.7
SaO2 [CPAP] 99
SaO2 [SIMV] 99
SaO2 99
Nasal Cannula flow liters per 2
minute
Physical Exam
General: Respiratory Distress (negative), Comfortable, Chills (negative) and Sweats (negative)
HEENT: Normocephalic and Anicteric
Cardiovascular: S1-S2 and Peripheral Edema (negative)
Respiratory: Wheeze (negative), Crackles (Bibasilar), Rhonchi (negative), Non-Labored Respirations, Stridor (negative) and Chest Tube (Right pleural chest tube x 1 and mediastinal chest tubes x 2)
GI: Soft, Non Distended, Non Tender and Normal Bowel Sounds
Neurology: AO x 3 and Tremors (negative)
Skin: Warm, Dry, Cyanosis (negative) and Jaundice (negative)
Labs/Micro/Reports
Lab Data
10/24/24 03:12
10/24/24 03:12
Laboratory Results
10/23/24
10:34
PT 17.4 H
INR 1.40
APTT 30.0
pH 7.42
pCO2 37
pO2 161 H
HCO3 24.0
O2 Delivery Level
[2024-10-24] MEDS: NOVOLOG FLEXPEN 4 UNITS SC (08:18)
[2024-10-24 08:21] LABS: Glucose - Point of Care 128 mg/dl (70-99)
--- NOTE | 2024-10-24 09:02 | W.PN.CD ---
Today's Communication / Plan
-
- Metoprolol, amiodarone and aspirin started.
- Incentive spirometry and early mobilization with ambulation.
Impression / Plan
-
I/P: 54M with symptomatic severe aortic stenosis presents for AVR
Primary radio television technical director: Dr. Ruel Tucker
Severe symptomatic aortic valve stenosis with bicuspid morphology s/p surgical aortic valve replacement (29 mm Rollins Inspira Resilia) by Dr. Schwartz 01/23/2025
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
- Post MG 5 mmHg
- Post LVEF unchanged at 60% with no new regional wall motion abnormalities
- Required a short period of VVI pacing and has regained sinus rhythm, no inotropic support required
- EKG sinus bradycardia with inferior T wave abnormality, iRBBB no longer present
- Plan to remove pleural drains. Remove Ma's catheter.
- Plan to get patient out of the bed and ambulate as necessary.
- Continue aspirin, metoprolol and amiodarone.
- Holding Lasix for now.
SUBJECTIVE:
Extubated and alert and awake denying any significant pain in the chest. Incisional pain tolerable.
Physical Exam
Vital Signs/Labs
Vital Signs
Temp Pulse Resp BP Pulse Ox
98.3 F 73 18 108/68 99
10/24/24 07:00 10/24/24 07:00 10/24/24 07:00 10/24/24 07:00 10/24/24 07:00
10/23/24 10/24/24 10/25/24
06:59 06:59 06:59
Actual Weight 107 kg 108.9 kg
10/24/24 03:12
10/24/24 03:12
PT 17.4 Sec (11.4-14.6) H 10/23/24 10:34
INR 1.40 10/23/24 10:34
APTT 30.0 Sec (23.4-35.0) 10/23/24 10:34
Magnesium 2.2 mg/dl (1.6-2.3) 10/24/24 03:12
Physical Exam
Constitutional: No acute distress and Comfortable
EENT: Anicteric and Moist mucous membranes
Cardiovascular: Rhythm & rate is regular, Pedal edema is absent and JVD pressure is normal
Respiratory: Respiratory effort normal, Lungs clear to auscul. and Wheeze Absent
GI: Soft, Distention absent and Normal bowel sounds
Neuro/Psych: Alert, Oriented and AO x 3
Other: Skin
Data Reviewed
-
Date of Service: October 24, 2024
Medical Decision Making: Reviewed Test Results, Test Interpretation and Review of Case with other Provider
EKG: Tracing Personally Visualized and interpreted
Echo: Report Reviewed by me
Labs: Labs Reviewed by me
Old Records: Reviewed
Critical Care Time (in minutes): 32
[2024-10-24] MEDS: LOPRESSOR 12.5 MG PO (09:14)
[2024-10-24] MEDS: COLCHICINE 0.6 MG PO ×2 (09:14→19:53)
--- NOTE | 2024-10-24 09:30 | PTCARENOTE ---
Pt assisted back to bed. Right pleural chest tube d/c per orders. Pt tolerated. Epicardial v-wire insulated per orders. Pt resting in bed at this time.
[2024-10-24 10:13] LABS: Glucose - Point of Care 127 mg/dl (70-99)
[2024-10-24 10:42] LABS: Glucose - Point of Care 115 mg/dl (70-99)
--- NOTE | 2024-10-24 12:10 | PTCARENOTE ---
Pt reassessed. NSR on tele with rates in the 70s. BP 108/71. POX 97% on RA. IS encouraged. Surgical sites stable. CT output WNL. Pt voided 100mL valentin urine, bladder scanned post void, 0ml. Rates sternal pain 3/10. Denies nausea. Ambulated in the
vernon with 2 assist. Pt tolerated.
[2024-10-24] MEDS: FERRLECIT 110 MG IV (13:57)
[2024-10-24] MEDS: MYLICON 80 MG PO (14:31)
--- NOTE | 2024-10-24 16:50 | PTCARENOTE ---
Pt reassessed. Resting in bed. NSR on tele with rates in the 60s-80s. BP 114/74. POX 97% on RA. Surgical sites stable. CT output WNL. Pt assisted to ambulate in the vernon with 1 assist. Denies dizziness. Rates sternal pain 3/. No other acute
changes from previous assessment.
[2024-10-24] MEDS: REMOVE LIDOCAINE PATCH 1 PATCH REMOVE (19:53)
--- NOTE | 2024-10-24 20:18 | PTCARENOTE ---
Patient received from RN @ 1900. Patient sitting in chair w/ call lew in reach. AOx3. NSR BP 96/60 HR 71. Heart sounds audible w/ rub. Radial and pedal pulses present bilaterally. Trace edema noted in hands. IS 1500. POX 92% RA. Lungs
diminished in bases bilaterally. 2x mediastinal chest tubes set to -20 wall suction. No crepitus, tidaling, or air leaks noted. Bowel sounds hypoactive. Voiding clear yellow urine. Sternal incision well approximated NUCLEAR SPECTROSCOPIST. CT dressing dry and
intact. RIJ cordis patent and intact. Left forearm PIV patent and intact.
[2024-10-24] MEDS: LOPRESSOR PO (20:56)
--- NOTE | 2024-10-24 23:48 | PTCARENOTE ---
Patient reassessed. VSS. No change from previous assessment.
[2024-10-25] VITALS (16 sets, daily range): BP systolic 102–128; BP diastolic 62–85; BMI 28.9
[2024-10-25 04:54] LABS: Hematocrit 30.8 % (39.0-52.0); Hemoglobin 10.2 g/dL (13.0-18.0); Mean Corp Hgb Conc. 33.1 g/dL (33.0-37.0); Mean Corpuscular Volume 83.2 fL (80.0-94.0); Platelet Count 117 10^3/uL (130-400); Red Cell Dist. Width 13.2 % (11.5-14.5)
--- NOTE | 2024-10-25 05:00 | PTCARENOTE ---
Patient reassessed. Assessment unchanged. VSS. Labs drawn.
[2024-10-25 05:09] LABS: Blood Urea Nitrogen 29 mg/dl (9-20); Calcium 8.4 mg/dl (8.4-10.2); Carbon Dioxide 30 mmol/L (22-30); Chloride 104 mmol/L (98-107); Estimated Creatinine Clearance 95 ml/min; Glucose 117 mg/dl (70-99); Magnesium 2.4 mg/dl (1.6-2.3); Potassium 4.1 mmol/L (3.5-5.1); Sodium 135 mmol/L (135-145); eGFR > 60.00
[2024-10-25] MEDS: ROXICODONE 5 MG PO ×3 (05:29→19:58)
[2024-10-25] MEDS: TYLENOL 1000 MG PO ×3 (05:29→22:02)
[2024-10-25] MEDS: MUCINEX 600 MG PO ×2 (06:03→19:57)
--- NOTE | 2024-10-25 06:23 | W.PN.CT ---
Today's Communication / Plan
-
-pod #2
-looks and feels better overall, walked, no significantissues overnight
-low BP last night - held BB pm, gave Amio
-CT outputs: 2 meds 20/130 in 12/24 hrs
-on Colchicine for pericarditis
-current meds (ASA, Amio, Lopressor, Colchicine, Protonix)
-encourage IS, OOB, ambulate
Assessment / Plan
-
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
sternal fixation with [address] Schwartz on 10/23/25, pod #2
- Intraop MÓNICA: LVEF pre and postop was 60% with no significant regional wma. There was no paravalvular leak, the mean gradient across the new valve was 5 mmHg.
- L shoulder release 2018
- Vasectomy
- Nonsmoker
- Acute postop blood loss anemia
- Acute postop atelectasis/pulmonary insufficiency
- Acute postop hypovolemia with subsequent hypervolemia
- Suspected acute postop pericarditis- started on Colchicine
Discussed patient care with: Nursing and Care Team
Subjective
-
Date of Service: October 24, 2024
Objective Data
-
Lab Results
10/24/24 03:12
10/24/24 03:12
PT 17.4 Sec (11.4-14.6) H 10/23/24 10:34
INR 1.40 10/23/24 10:34
APTT 30.0 Sec (23.4-35.0) 10/23/24 10:34
Vital Signs
Vital Signs
Temp Pulse Resp BP Pulse Ox
99 F 68 16 97/60 92
10/24/24 19:49 10/24/24 21:37 10/24/24 19:49 10/24/24 20:56 10/24/24 20:31
CT Intake/Output/Weight
10/24/24 10/24/24 10/25/24
06:59 18:59 06:59
Intake Total 711.4 / 2273.7 729.1 / 739.1 10 739.1
Output Total 617 / 1720 315 / 425 110 / 425
Balance 94.4 / 553.7 414.1 / 314.1 -100 / 314.1
SaO2: 92
Physical Exam
-
General: Awake and AOx3
Cardiovascular: Regular rate & rhythm, No Murmurs and No Rub
Respiratory: Decreased Breath Sounds
Sternum: Stable
Incision: Clean, Dry and Intact
Extremities: Other (trace edema b/l)
Abdomen: soft, nontender, nondistended, + bowel sounds
Data Reviewed
-
Lab Results: Results Reviewed
Medications: Active Meds Reviewed
Chest X-Ray: Report Reviewed and Image Reviewed
ECG: Report Reviewed and Image Reviewed
--- NOTE | 2024-10-25 08:00 | PTCARENOTE ---
Resumed care of patient. Walking rounds completed with previous RN. Pt assessed while he was sitting in the chair. Pt alert and oriented x4. Pt rates sternal pain 3/10. Denies nausea and shortness of breath. Ambulated 150' in the vernon with standby
assist. Pt tolerated. VAUGHN with equal strength throughout. NSR on tele with rates 60s-70s. BP 102/68. +Rub. Bilateral radial and DP pulses palpable. Trace edema to b/l hands and ankles. Epicardial v-wire insulated. POX 96% on RA. Lungs diminished in
the bases. Occasional productive cough with beard sputum. IS encouraged-1500mL achieved. Mediastinal chest tubes x2 y-sited to 1 atrium to -20cm suction draining serosanguineous fluid, WNL. Abdomen soft nontender. +BS +gas. Tolerating diet. Pt voiding
adequate amounts in the urinal, DTV for this RN. Sternal incision approximated, LAST CODE STRIPER. CT dressing CDI. Right IJ cordis intact infusing NSS KVO. Left forearm 20g PIV intact. See MAR for medication administration. See worklist for complete nursing
assessment. Plan of care reviewed and patient in agreement.
[2024-10-25] MEDS: LIDOCAINE 4% PATCH 1 PATCH TOPICAL (08:06)
[2024-10-25] MEDS: BACTROBAN 2% OINTMENT 1 APPLIC NASAL ×2 (08:06→19:57)
[2024-10-25] MEDS: PROTONIX 40 MG PO (08:06)
[2024-10-25] MEDS: LOW STRENGTH ASPIRIN 81 MG PO (08:06)
[2024-10-25] MEDS: MAGNESIUM OXIDE 500 MG PO (08:07)
[2024-10-25] MEDS: LOPRESSOR 12.5 MG PO ×2 (08:07→19:57)
[2024-10-25] MEDS: NEURONTIN 100 MG PO ×3 (08:07→22:02)
[2024-10-25] MEDS: PACERONE 200 MG PO ×3 (08:07→22:02)
[2024-10-25] MEDS: NSS 500 IV (08:07)
[2024-10-25] MEDS: SENOKOT-S 1 TABLET PO ×2 (08:07→19:58)
[2024-10-25] MEDS: COLCHICINE 0.6 MG PO (08:07)
[2024-10-25] MEDS: FLEXERIL 5 MG PO ×2 (08:07→19:58)
--- NOTE | 2024-10-25 08:30 | PTCARENOTE ---
CT PA at bedside to pull epicardial v-wire. Pt tolerated. q15 vitals and CT output monitored.
--- NOTE | 2024-10-25 09:45 | PTCARENOTE ---
Mediastinal chest tubes x2 d/c per orders. Pt tolerated. New dressing applied. Pt resting in bed.
[2024-10-25] MEDS: LASIX 40 MG IV (10:22)
[2024-10-25] MEDS: KCL PO (10:22)
[2024-10-25] MEDS: KCL 20 MEQ PO (10:27)
--- NOTE | 2024-10-25 12:30 | PTCARENOTE ---
Pt reassessed. VSS. Surgical sites stable. Ambulated 480' in the vernon and tolerated. Independent in the room.
[2024-10-25] MEDS: FERRLECIT 110 MG IV (14:15)
--- NOTE | 2024-10-25 16:00 | PTCARENOTE ---
Pt reassessed. VSS. Surgical sites stable. Voiding adequate amounts of clear yellow urine. Sternal pain 2/10, tolerable as per patient. Ambulated 480' in the halls. No acute changes.
[2024-10-25] MEDS: MAGNESIUM OXIDE PO (20:13)
[2024-10-25] MEDS: REMOVE LIDOCAINE PATCH 1 PATCH REMOVE (20:13)
--- NOTE | 2024-10-25 21:05 | PTCARENOTE ---
Assumed care of patient at 1900. patient alert and oriented, Follows all commands, PERLLA. Good bilateral strenght throughout. OOB in chair. Patient ambulating in room with out issue. Pain states pain is 3/10 when not moving around. pain
controlled with PRN medications. Normal sinus Rythym on monitor, BP WNL, + pulsestrace edema in hands. Lungs sound clear bilateral slightly diminished at bases, good effort with IS =2000, productive cough. Bowels sounds presend, passing gas,
patient states had a small BM. Voiding clear yellow urine in urinal. Sternal site open to air, Chest tube site CDI. CHG bath completed, oral care completed. please send workflow for more detail assessment data.
[2024-10-26] VITALS (9 sets, daily range): BP systolic 112–123; BP diastolic 56–82; PULSE 62; O2SAT 95–100; BMI 28.3
--- NOTE | 2024-10-26 00:13 | PTCARENOTE ---
patient sleeping, vital signs stable, call light within reach.
--- NOTE | 2024-10-26 00:21 | W.PN.CT ---
Today's Communication / Plan
-
No issues overnight�
Current meds (ASA, Amio, Lopressor, Colchicine (pericarditis), Protonix)�
Encourage IS, OOB, ambulate�
Possible DC in AM�
Assessment / Plan
-
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
sternal fixation with [address] Schwartz on 10/23/25, pod #3
- Intraop MÓNICA: LVEF pre and postop was 60% with no significant regional wma. There was no paravalvular leak, the mean gradient across the new valve was 5 mmHg.
- L shoulder release 2018
- Vasectomy
- Nonsmoker
- Acute postop blood loss anemia
- Acute postop atelectasis/pulmonary insufficiency
- Acute postop hypovolemia with subsequent hypervolemia
- Suspected acute postop pericarditis- started on Colchicine
Subjective
-
Date of Service: October 26, 2024
Objective Data
-
PT 17.4 Sec (11.4-14.6) H 10/23/24 10:34
INR 1.40 10/23/24 10:34
APTT 30.0 Sec (23.4-35.0) 10/23/24 10:34
Vital Signs
Vital Signs
Temp Pulse Resp BP Pulse Ox
99.4 F 63 16 114/64 96
10/25/24 19:07 10/26/24 00:05 10/26/24 00:05 10/26/24 00:05 10/26/24 00:05
CT Intake/Output/Weight
10/25/24 10/25/24 10/26/24
06:59 18:59 06:59
Intake Total 30 / 759.1 940 / 1150 210 / 1150
Output Total 970 / 1285 1800 / 1800
Balance -940 / -525.9 -860 / -650 210 / -650
SaO2: 96
Physical Exam
-
General: Awake
Cardiovascular: Regular rate & rhythm
Respiratory: Clear
Sternum: Stable
Incision: Clean, Dry and Intact
Extremities: No Edema
--- NOTE | 2024-10-26 04:15 | PTCARENOTE ---
Patient alert and oriented pain 2/10 controlled. OOB to bathroom, ambulated in room. BP WNL, NSR, + pulses Voided, passing gas,
[2024-10-26 04:17] LABS: Hematocrit 30.3 % (39.0-52.0); Hemoglobin 10.2 g/dL (13.0-18.0); Mean Corp Hgb Conc. 33.7 g/dL (33.0-37.0); Mean Corpuscular Volume 83.7 fL (80.0-94.0); Platelet Count 112 10^3/uL (130-400); Red Cell Dist. Width 13.1 % (11.5-14.5)
[2024-10-26 04:42] LABS: Blood Urea Nitrogen 25 mg/dl (9-20); Calcium 8.4 mg/dl (8.4-10.2); Carbon Dioxide 30 mmol/L (22-30); Chloride 106 mmol/L (98-107); Estimated Creatinine Clearance 104 ml/min; Glucose 101 mg/dl (70-99); Magnesium 2.3 mg/dl (1.6-2.3); Potassium 4.1 mmol/L (3.5-5.1); Sodium 138 mmol/L (135-145); eGFR > 60.00
[2024-10-26] MEDS: TYLENOL 1000 MG PO (06:17)
[2024-10-26 07:53] LABS: B.E. - POC 1.8 mmol/L; Glucose - POC 129 mg/dl (70-99); HCO3 - POC 26 mmol/L (21-28); Hematocrit - POC 33 % PCV (42-52); Hemodilution- POC Yes; Hemoglobin Calculated - POC 11.2; Ionized Calcium - POC 1.24 mmol/L (1.15-1.33); Lactate - POC 1.03 mmol/L (0.36-0.75); O2 Saturation %Calculated-POC 100.0 % (94-98); PCO2 - POC 37 mmHg (35-48); PO2 - POC 357 mmHg (83-108); Potassium - POC 4.2 mmol/L (3.5-5.1); Sodium - POC 143 mmol/L (136-145); Specimen Type - POC Arterial; pH - POC 7.45 (7.35-7.45)
[2024-10-26] MEDS: NEURONTIN 100 MG PO (08:22)
[2024-10-26] MEDS: LOW STRENGTH ASPIRIN 81 MG PO (08:22)
[2024-10-26] MEDS: PROTONIX 40 MG PO (08:22)
[2024-10-26] MEDS: MUCINEX 600 MG PO (08:22)
[2024-10-26] MEDS: COLCHICINE 0.6 MG PO (08:22)
[2024-10-26] MEDS: LOPRESSOR 12.5 MG PO (08:22)
[2024-10-26] MEDS: PACERONE 200 MG PO (08:22)
[2024-10-26] MEDS: MAGNESIUM OXIDE 500 MG PO (08:23)
[2024-10-26] MEDS: LIDOCAINE 4% PATCH TOPICAL (08:23)
[2024-10-26] MEDS: SENOKOT-S 1 TABLET PO (08:23)
[2024-10-26] MEDS: BACTROBAN 2% OINTMENT 1 APPLIC NASAL (08:24)
--- NOTE | 2024-10-26 08:50 | PTCARENOTE ---
assumed care of pt from previous shift RN, sinus rhythm on tele, VSS, + peripheral pulses, no edema. Lungs clear, coughing and deep breathing encouraged. +bs, tolerating PO intake, voids spontaneously. Cordis removed as ordered. PIV flushes easily.
Surgical sites stable. Plan of care reviewed and questions encouraged.
[2024-10-26] MEDS: NSS IV (08:59)
--- NOTE | 2024-10-26 08:59 | PTCARENOTE ---
pt sent for 2 view cxr
[2024-10-26 09:08] LABS: B.E. - POC 3.9 mmol/L; Glucose - POC 124 mg/dl (70-99); HCO3 - POC 28 mmol/L (21-28); Hematocrit - POC 34 % PCV (42-52); Hemodilution- POC Yes; Hemoglobin Calculated - POC 11.6; Ionized Calcium - POC 1.01 mmol/L (1.15-1.33); Lactate - POC < 0.30 mmol/L (0.36-0.75); O2 Saturation %Calculated-POC 100.0 % (94-98); PCO2 - POC 38 mmHg (35-48); PO2 - POC 474 mmHg (83-108); Potassium - POC 5.0 mmol/L (3.5-5.1); Sodium - POC 141 mmol/L (136-145); Specimen Type - POC Arterial; pH - POC 7.47 (7.35-7.45)
[2024-10-26 09:08] LABS: B.E. - POC 1.2 mmol/L; Glucose - POC 103 mg/dl (70-99); HCO3 - POC 25 mmol/L (21-28); Hematocrit - POC 34 % PCV (42-52); Hemodilution- POC No; Hemoglobin Calculated - POC 11.6; Ionized Calcium - POC 1.16 mmol/L (1.15-1.33); Lactate - POC < 0.30 mmol/L (0.36-0.75); O2 Saturation %Calculated-POC 99.9 % (94-98); PCO2 - POC 38 mmHg (35-48); PO2 - POC 313 mmHg (83-108); Potassium - POC 3.7 mmol/L (3.5-5.1); Sodium - POC 142 mmol/L (136-145); Specimen Type - POC Arterial; pH - POC 7.43 (7.35-7.45)
[2024-10-26 09:14] LABS: ACT+ - POC > 1003 Seconds (82-134)
[2024-10-26 09:14] LABS: ACT+ - POC > 1003 Seconds (82-134)
--- NOTE | 2024-10-26 09:58 | W.[place]-PDMP ---
[place]PD[place]
-
Checked the [place]- Pres[place] Drug Monitoring Program website, no red flags identified; safe to proceed with prescription.
--- NOTE | 2024-10-26 09:59 | W.DCSUMMARY ---
Discharge Summary
Discharge Data
Date of Admission: 10/23/24
Date of Discharge: 10/26/24
Total time spent discharging patient (in min): 45
-
Pending Results: No
Hospital Course
Primary care physician:
Dr. Maverick King
Outpatient glass blowing instructor:
Dr. Ruel Tucker
Inpatient consultants:
[facility] cardiology
Procedures:
1. Surgical aortic valve replacement (number 29 mm bioprosthesis)
2. 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
3. Rigid sternal fixation with [address] Jaswinder Schwartz MD. on 10/23/24
Primary Diagnosis:
1. Aortic valve stenosis with bicuspid valve morphology
2. Presyncope
3. History of left shoulder release 2019
4. History of vasectomy
Secondary Diagnoses:
1. Aortic valve stenosis with bicuspid valve morphology
2. Presyncope
3. History of left shoulder release 2019
4. History of vasectomy
HPI:
Patient is extremely pleasant 54-year-old male who has been noticing increasing symptoms while running. He is very active at baseline and does high speed running. Lately he will try to push himself to the same level he developed presyncopal
symptoms at. His transthoracic echocardiogram demonstrated severe to critical aortic valve stenosis with a mean gradient of 64 mmHg. He has known bicuspid valve morphology with [id number] fusion. Given his symptoms and his young age, he was
offered surgical aortic valve replacement with either mechanical or biological valve. Given have his line of work, shared decision making was to pursue a biological valve with the knowledge that he may need a repeat surgical aortic valve
replacement versus a transcatheter aortic valve replacement down the line.His TAVR CT demonstrated amenable anatomy of the large root which should be good for future transcatheter intervention.He was seen as an outpatient in consultation and a
surgical date was discussed, and consent was obtained.
Hospital course:
Patient presented to the operating room on the date described above for the procedure described above. Patient tolerated procedure well. He remained intubated. He was transported from the operating room to the cardiovascular intensive care
unit.He was extubated in routine fashion on postoperative day 0 at 1435. He received Toradol for analgesia control.
On postoperative day #1 all drips consisting of pressors and inotropes were weaned off. He was de lined and transferred to telemetry. Ma catheter and pleural chest tubes were removed. And his insulin drip was transitioned to sliding
scale.Patient was tolerating aspirin and low-dose beta-blockade.
On postoperative day #2 the patient's mediastinal chest tubes were removed. He was gently diuresed with Lasix 40 mg IV x 1 and potassium replacement. Patient was saturating well on room air.
On postoperative day #3 patient's beta-destinee was transitioned to Toprol-XL 25 mg daily. He was seen by attending physician on morning rounds and deemed an appropriate discharge candidate to home. He was discharged with Lasix 40 mg p.o. x 3 days
due to his weight being up 3 pounds from baseline.
Home medication changes:
You are welcome thank you aspirin 81 mg daily
Toprol-XL 25 mg daily
Lasix 40 mg p.o. x 3 days-Weight up 3 pounds from preop
Potassium chloride 20 mill equivalents p.o. x 3 days-Potassium replacement
Oxycodone 5 mg p.o. every 6 hours as needed ongoing pain control
Cyclobenzaprine 5 mg every 8 hours as needed for muscle spasms
Discharge Plan
-
Patient Disposition: Home (Routine Discharge)
Discharge Diagnosis/Procedures: tissue Aortic Valve Replacement (10/23/24)
Condition: Good
Diet: Low Cholesterol and Low Sodium
Activity: No strenuous activity
Driving Restrictions: Not until seen by your Dr
Bathing Restrictions: OK to Shower
Other Services: Cardiac Rehab
Specialty Instructions: Weigh Daily- Call MD for wt gain/loss 3 lbs overnight/5 lbs in 1 week
Activity Restrictions/Additional Instructions:
ACTIVITY:
-No strenuous activity: no heavy lifting, pushing, pulling anything over 15 pounds for one month
-continue to use stairs as tolerated
DRIVING RESTRICTIONS:
-No driving for one month or until approved by your surgeon
WOUND CARE:
-Shower daily. Use soap & water.
-No lotions, creams or powders on incision area.
DIET:
-continue a low fat/low cholesterol diet.
-IF you are diabetic, continue carb controlled diet.
CARDIAC REHAB:
-Please make appointment to start in 5-6 weeks with your local hospital program. (See Cardiac Rehabilitation Discharge Booklet).
SPECIALTY INSTRUCTIONS:
-Weigh yourself daily. Call your physician for any weight gain/loss of 3 lbs overnight or 5 lbs in one week.
-REPORT any clicking noise or uneven appearance of your sternum to your surgeon immediately.
-If you smoke, you are instructed to quit. The [place] smoking hotline phone number is [phone]
Referrals:
CT Transitional Care Nurse [Outside]
Referral Note:
The Cardiothoracic Transitional Care Nurse will call you to set up a visit in 1-2 days.
[facility]. Cardiac Rehab [Outside] - 12/01/24 11:00 am
Referral Note: Cardiac Rehab Orientation appointment and� First Exercise appointment is on 12/01 at 11 am.
The Cardiac Rehab gym is located on the first floor of the [facility].
Nidia Cain CRNP [Specified Professional Personl, Cardiology] - 12/02/24 11:00 am
Maverick King MD [Family Provider, Internal Medicine]
Angela Cain CRNP [Specified Professional Personl, Cardiac Surgery] - 11/23/24 2:15 pm
Prescriptions:
New
aspirin 81 mg Tablet,Chewable
81 mg PO DAILY Qty: 0 0RF
acetaminophen 325 mg Tablet
650 mg PO Q4HPRN PRN (Reason: mild pain,headache,temp >101F ) Qty: 0 0RF
metoprolol succinate 25 mg Tablet Extended Release 24 Hr
25 mg PO DAILY Qty: 30 1RF
sennosides-docusate sodium 8.6-50 mg Tablet
1 tab PO Q12 PRN (Reason: Constipation) Qty: 30 0RF
Rx Instructions:
Use while taking narcotic pain medication. Hold/stop for loose stools/diarrhea
oxycodone 5 mg Tablet
5 mg PO .Q6H PRN PRN (Reason: moderate-severe pain) Qty: 28 0RF
Rx Instructions:
Ongoing pain control. Attending physician Dr. Lana MD
pantoprazole 40 mg Tablet,Delayed Release (Dr/Ec)
40 mg PO DAILY Qty: 30 0RF
Rx Instructions:
Take for 30 days, discuss continuing with PCP/Cardiology
guaifenesin 600 mg Tablet Extended Release 12hr
600 mg PO Q12 PRN (Reason: Congestion) Qty: 0 0RF
Rx Instructions:
Take only as needed for congestion. Please purchase OTC
cyclobenzaprine 10 mg Tablet
5 mg PO Q8HPRN PRN (Reason: muscle spasm) Qty: 30 0RF
furosemide [Lasix] 40 mg tablet
40 mg PO DAILY Qty: 3 0RF
Rx Instructions:
Take for 3 days until the bottle is empty and then stop.
potassium chloride [K-Tab] 20 mEq tablet extended release
20 meq PO DAILY Qty: 3 0RF
Rx Instructions:
Take 1 tab daily with Lasix for 3 days until the bottle is empty and then stop.
Discontinued
aspirin 325 mg Tablet
325 mg PO PRN PRN (Reason: pain)
Care Plan Goals
Care Plan Goals:
Problem: Readiness for enhanced knowledge related to diagnosis and treatment plan
Goal: Understand your diagnosis and treatment plan needs, including medications if applicable.
Instructions: Know your diagnosis, underlying causes and treatment plan options, including medications if applicable. Consult with your health care team to learn about your diagnosis and treatment plan, including medications if applicable.
Discharge Date and Time
Print Language: MONTSERRATIAN
--- NOTE | 2024-10-26 11:17 | W.PN.CD ---
Today's Communication / Plan
-
OOB ambulate
d/c today
Will f/u with Dr Tucker
Impression / Plan
-
I/P: 54M with symptomatic severe aortic stenosis presents for AVR
Primary account contact associate: Dr. Ruel Tucker
Severe symptomatic aortic valve stenosis with bicuspid morphology s/p surgical aortic valve replacement (29 mm [employer] Inspira Resilia) by Dr. Schwartz 01/23/2025
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
- Post MG 5 mmHg
- Post LVEF unchanged at 60% with no new regional wall motion abnormalities
- Required a short period of VVI pacing and has regained sinus rhythm, no inotropic support required
- EKG sinus bradycardia with inferior T wave abnormality, iRBBB no longer present
- Plan to remove pleural drains. Remove Ma's catheter.
- Plan to get patient out of the bed and ambulate as necessary.
- Continue aspirin, metoprolol and amiodarone.
- Holding Lasix for now.
SUBJECTIVE:
Feeling improved no new complaints
Physical Exam
Vital Signs/Labs
Vital Signs
Temp Pulse Resp BP Pulse Ox
98.6 F 63 16 115/82 97
10/26/24 11:02 10/26/24 10:32 10/26/24 11:02 10/26/24 10:32 10/26/24 11:02
10/25/24 10/26/24 10/27/24
06:59 06:59 06:59
Actual Weight 243 lb 2.718 oz 238 lb 8.642 oz
10/26/24 04:05
10/26/24 04:05
PT 17.4 Sec (11.4-14.6) H 10/23/24 10:34
INR 1.40 10/23/24 10:34
APTT 30.0 Sec (23.4-35.0) 10/23/24 10:34
Magnesium 2.3 mg/dl (1.6-2.3) 10/26/24 04:05
Physical Exam
Constitutional: No acute distress and Comfortable
EENT: Anicteric
Cardiovascular: Rhythm & rate is regular
Respiratory: Respiratory effort normal and Lungs clear to auscul.
GI: Soft
Neuro/Psych: AO x 3
Data Reviewed
-
Date of Service: October 26, 2024
Medical Decision Making: Reviewed Test Results
EKG: Tracing Personally Visualized and interpreted (sr)
Labs: Labs Reviewed by me
[2024-10-26] MEDS: FERRLECIT 110 MG IV (12:30)
[2024-10-26] MEDS: TYLENOL PO (16:00)
--- NOTE | 2024-10-26 16:02 | PTCARENOTE ---
post op dressings removed, pt tolerated shower. IV line removed. discharge instructions, follow up appointments and medication list reviewed w the pt and his , questions encouraged. pt was discharged without incident.
== END 2024-10-26 16:08 | disposition home or self-care (01) | DRG 219 ==
LOC: CVICU 05:05
PROVIDERS: Anesthesiology; Nurse Practitioner; ADMITTING PHYSICIAN Thoracic Surgery (Cardiothoracic Vascular Surgery); CONSULT PHYSICIAN Internal Medicine Critical Care Medicine; FAMILY PHYSICIAN Internal Medicine
PROC: 02RF08Z Replacement of Aortic Valve with Zooplastic Tissue, Open Approach (ICD-10-PCS; 2024-10-23)
PROC: B24BZZ4 Ultrasonography of Heart with Aorta, Transesophageal (ICD-10-PCS; 2024-10-23)
PROC: 5A1221Z Performance of Cardiac Output, Continuous (ICD-10-PCS; 2024-10-23)
DX: I35.2 Nonrheumatic aortic (valve) stenosis with insufficiency (principal); J95.1 Acute pulmonary insufficiency following thoracic surgery; D62 Acute posthemorrhagic anemia; J98.11 Atelectasis; I30.8 Other forms of acute pericarditis; Q23.81 Bicuspid aortic valve; R73.9 Hyperglycemia, unspecified; D69.59 Other secondary thrombocytopenia; R55 Syncope and collapse; E86.1 Hypovolemia; E87.70 Fluid overload, unspecified; Y83.2 Surgical operation with anastomosis, bypass or graft as the cause of abnormal reaction of the patient, or of later complication, without mention of misadventure at the time of the procedure; Z79.82 Long term (current) use of aspirin; Z79.899 Other long term (current) drug therapy; Z82.49 Family history of ischemic heart disease and other diseases of the circulatory system; Z87.891 Personal history of nicotine dependence
CPT/HCPCS: 36415; 71045; 71046; 80048; 80053; 81003; 81015; 82248; 82330; 82565; 82805; 82810; 82947; 82962; 83036; 83735; 84132; 84302; 84520; 85014; 85018; 85025; 85027; 85049; 85610; 85730; 86850; 86900; 86901; 86920; 87070; 88305; 88311; 93005; 93312; 93320; 93325; 94002; J2916

== ENCOUNTER 2024-12-28 10:02 | Outpatient (RCR) | payer OTHER, SELFPAY | END 2024-12-28 23:59 | disposition home or self-care (01) | LOC: CRHB 10:02 | PROVIDERS: ATTENDING PHYSICIAN Internal Medicine Cardiovascular Disease; FAMILY PHYSICIAN Internal Medicine | DX: Z95.2 Presence of prosthetic heart valve (principal) | CPT/HCPCS: G0422; G0423 ==

== ENCOUNTER 2025-01-29 10:31 | Outpatient (RCR) | payer OTHER, SELFPAY | END 2025-01-29 23:59 | disposition home or self-care (01) | LOC: CRHB 10:31 | PROVIDERS: ATTENDING PHYSICIAN Internal Medicine Cardiovascular Disease; FAMILY PHYSICIAN Internal Medicine | DX: Z95.2 Presence of prosthetic heart valve (principal) | CPT/HCPCS: G0422; G0423 ==

== ENCOUNTER 2025-02-26 06:54 | Outpatient (RCR) | payer OTHER, SELFPAY ==
[2025-02-19 10:19] LABS: HDL Cholesterol 49 mg/dl; LDL Cholesterol, Calculated 160 mg/dl; Very Low Density Lipoprotein 18 mg/dl (0-30)
== END 2025-02-26 23:59 | disposition home or self-care (01) ==
LOC: CRHB 06:54
PROVIDERS: ATTENDING PHYSICIAN Internal Medicine Cardiovascular Disease; FAMILY PHYSICIAN Internal Medicine; REFERRING PHYSICIAN Internal Medicine Cardiovascular Disease
DX: I25.10 Atherosclerotic heart disease of native coronary artery without angina pectoris (principal); Z95.2 Presence of prosthetic heart valve
CPT/HCPCS: 36415; 80061; 93798; G0422; G0423